=== PATIENT | male | born 1975 | race Caucasian/White ===

== ENCOUNTER 2017-08-21 14:34 | Emergency (ER) | payer OTHER ==
[~2017-08-21] VITALS: Ht 175.3 cm; Wt 95.7 kg
[2017-08-21] MEDS ORDERED: LISINOPRIL10 MG PO (14:56)
[2017-08-21] MEDS ORDERED: FLEXERIL10 MG PO (17:28)
[2017-08-21] MEDS ORDERED: ULTRAM50 MG PO (17:41)
[2017-08-21 17:57] VITALS: BP 123/85
== END 2017-08-21 17:58 | disposition home or self-care (01) ==
LOC: EME 14:34
DX: S56.912A Strain of unspecified muscles, fascia and tendons at forearm level, left arm, initial encounter (principal); V86.69XA Passenger of other special all-terrain or other off-road motor vehicle injured in nontraffic accident, initial encounter; E78.5 Hyperlipidemia, unspecified
CPT/HCPCS: 73060; 73090; 99281; 99284; J3010